=== PATIENT | female | born 1980 | race Caucasian/White ===

== ENCOUNTER 2017-07-19 20:54 | Inpatient (IN) | payer SELFPAY ==
[2017-07-19] MEDS: NORMAL SALINE 1000 ML 1,000 ML IV PRN (21:45)
[2017-07-19 21:56] LABS: HEMATOCRIT 36.6 % (36.0-47.0); HEMOGLOBIN 12.4 g/dL (12.0-15.5); HGB HCT DIFFERENCE 0.6; MEAN CORPUSCULAR HEMOGLOBIN 30.6 pg (27.0-33.4); MEAN CORPUSCULAR VOLUME 90 fl (80-97); RED BLOOD COUNT 4.06 10^6/uL (3.72-5.28); RED CELL DISTRIBUTION WIDTH 12.6 % (11.5-14.0); WHITE BLOOD COUNT 23.4 10^3/uL (4.0-10.5)
[2017-07-19 22:16] LABS: ALANINE AMINOTRANSFERASE 39 U/L (9-52); ALBUMIN 4.2 g/dL (3.5-5.0); ALKALINE PHOSPHATASE 84 U/L (38-126); ANION GAP 15 (5-19); ASPARTATE AMINO TRANSFERASE 17 U/L (14-36); BASOPHILS % (MANUAL) 0 % (0-2); BILIRUBIN,DIRECT 0.4 mg/dL (0.0-0.4); BILIRUBIN,TOTAL 0.5 mg/dL (0.2-1.3); BLOOD UREA NITROGEN 10 mg/dL (7-20); CALCIUM 9.2 mg/dL (8.4-10.2); CARBON DIOXIDE 22 mmol/L (22-30); CHLORIDE 106 mmol/L (98-107); EOSINOPHILS % (MANUAL) 0 % (0-6); GLUCOSE 175 mg/dL (75-110); LIPASE 54.8 U/L (23-300); LYMPHOCYTES % (MANUAL) 9 % (13-45); POTASSIUM 3.7 mmol/L (3.6-5.0); SODIUM 142.7 mmol/L (137-145); TOTAL CELLS COUNTED 100; TOTAL PROTEIN 7.2 g/dL (6.3-8.2)
[2017-07-19 22:18] LABS: TOXIC VACUOLATION PRESENT
[2017-07-19 22:19] LABS: POLYCHROMASIA SLIGHT
[2017-07-19 22:25] LABS: APPEARANCE,URINE CLEAR; BILIRUBIN,URINE NEGATIVE (NEGATIVE); GLUCOSE, URINE 150 mg/dL (NEGATIVE); KETONES,URINE NEGATIVE (NEGATIVE); LEUKOCYTE ESTERASE,URINE NEGATIVE (NEGATIVE); NITRITE,URINE NEGATIVE (NEGATIVE); PROTEIN,URINE NEGATIVE (NEGATIVE); URINE SPECIFIC GRAVITY 1.006; UROBILINOGEN,URINE NEGATIVE mg/dL (<2.0)
[2017-07-19] MEDS ORDERED: PROCHLORPERAZINE EDISYLATE INJ 10 MG/2 ML VIAL ONE (22:45)
[2017-07-19] MEDS ORDERED: PROCHLORPERAZINE EDISYLATE INJ 10 MG/2 ML VIAL IV ONE (22:50)
[2017-07-19] MEDS ORDERED: ERTAPENEM SODIUM INJ 1 GM VIAL IV ONE (23:17)
--- NOTE | 2017-07-19 23:23 | ER Document Report ---
ED General - General Chief Complaint: Flank Pain Stated Complaint: FLANK PAIN Time Seen by Provider: 07/19/17 21:23 TRAVEL OUTSIDE OF THE [place] IN LAST 30 DAYS: No - HPI Patient complains to provider of: Right lower quadrant abdominal pain Notes: Patient coming right lower quadrant pain. Umbilical pain ongoing for the last few days. Patient states nausea vomiting. Patient denies any fevers or chills. Patient states last meal was around 6:00. Denies any past medical issues. Patient resting currently upon my evaluation. - Related Data Allergies/Adverse Reactions: azithromycin [From Zithromax] Allergy (Intermediate, Verified 11/08/16 08:24) itching Home Medications: Current Home Medications Multivitamin [Tab-A-Chari] 1 each PO DAILY 07/19/17 [History] Past Medical History - Social History Smoking Status: Never Smoker Family History: Hypertension Patient has suicidal ideation: No Patient has homicidal ideation: No - Past Medical History Cardiac Medical History: Reports: Hx Hypertension Neurological Medical History: Denies: Hx Seizures Renal/ Medical History: Denies: Hx Peritoneal Dialysis GI Medical History: Reports: Hx Gastroesophageal Reflux Disease Psychiatric Medical History: Reports: Hx Depression Past Surgical History: Reports: Hx Cholecystectomy. Denies: Hx Hysterectomy - Immunizations Immunizations up to date: Yes Hx Diphtheria, Pertussis, Tetanus Vaccination: Yes Review of Systems - Review of Systems Constitutional: No symptoms reported EENT: No symptoms reported Cardiovascular: No symptoms reported Respiratory: No symptoms reported Gastrointestinal: Abdominal pain Genitourinary: No symptoms reported Female Genitourinary: No symptoms reported Musculoskeletal: No symptoms reported Skin: No symptoms reported Hematologic/Lymphatic: No symptoms reported Neurological/Psychological: No symptoms reported -: Yes All other systems reviewed and negative Physical Exam - Vital signs Vitals: Temp Pulse Resp BP Pulse Ox 98.7 F 125 H 20 133/85 H 98 07/19/17 21:02 07/19/17 21:02 07/19/17 21:02 07/19/17 21:02 07/19/17 21:02 Interpretation: Normal - General General appearance: Appears well, Alert - HEENT Head: Normocephalic, Atraumatic Eyes: Normal Pupils: PERRL - Respiratory Respiratory status: No respiratory distress Chest status: Nontender Breath sounds: Normal Chest palpation: Normal - Cardiovascular Rhythm: Regular Heart sounds: Normal auscultation Murmur: No - Abdominal Inspection: Normal Distension: No distension Bowel sounds: Normal Tenderness: McBurney's point, Guarding, Rebound. No: Ambrosio's sign Organomegaly: No organomegaly - Back Back: Normal, Nontender - Extremities General upper extremity: Normal inspection, Nontender, Normal color, Normal ROM , Normal temperature General lower extremity: Normal inspection, Nontender, Normal color, Normal ROM , Normal temperature, Normal weight bearing. No: Junior's sign - Neurological Neuro grossly intact: Yes Cognition: Normal Orientation: AAOx4 [place] Coma Scale Eye Opening: Spontaneous [place] Coma Scale Verbal: Oriented [place] Coma Scale Motor: Obeys Commands [place] Coma Scale Total: 15 Speech: Normal Motor strength normal: LUE, RUE, LLE, RLE Sensory: Normal - Psychological Associated symptoms: Normal affect, Normal mood - Skin Skin Temperature: Warm Skin Moisture: Dry Skin Color: Normal Course - Re-evaluation Re-evalutation: 07/19/17 23:22 Lab work shows leukocytosis CAT scan confirms acute appendicitis. Will notify surgeon life science taxonomist. A dose of Invanz will be given patient has been remain n.p.o. IV fluids have been given. Patient does remain tachycardic at this time. 07/19/17 23:33 Discussed with surgeon on-call recommends IV antibiotics will take the OR in the morning. - Vital Signs Vital signs: Temp Pulse Resp BP Pulse Ox 98.7 F 125 H 26 H 125/84 97 07/19/17 21:02 07/19/17 21:02 07/19/17 22:01 07/19/17 23:15 07/19/17 23:15 - Laboratory Result Diagrams: 07/19/17 21:46 07/19/17 21:46 Laboratory results interpreted by me: 07/19/17 07/19/17 07/19/17 21:46 21:46 22:10 WBC 23.4 H Seg Neuts % (Manual) 85 H Lymphocytes % (Manual) 9 L Abs Neuts (Manual) 19.9 H Glucose 175 H Urine Glucose (UA) 150 H Urine Blood SMALL H Discharge - Discharge Clinical Impression: Acute appendicitis Qualifiers: Acute appendicitis type: with localized peritonitis Qualified Code(s): K35.3 - Acute appendicitis with localized peritonitis Condition: Good Disposition: ADMITTED OBSERVATION Admitting Provider: Surgicalist - Appresai Unit Admitted: Surgical Floor Referrals: NILAY LOGAN, DESCRIPTIVE CATALOG LIBRARIAN [Primary Care Provider] - Follow up as needed
--- NOTE | 2017-07-19 23:24 | RADIOLOGY REPORT (SQ) ---
EXAM DESCRIPTION: CT ABD/PELVIS WITH IV ONLY COMPLETED DATE/TIME: 07/19/2017 11:04 pm REASON FOR STUDY: RLQ PAIN COMPARISON: None. TECHNIQUE: CT scan of the abdomen and pelvis performed using helical scanning technique with dynamic intravenous contrast injection. No oral contrast. Images reviewed with lung, soft tissue, and bone windows. Reconstructed coronal and sagittal MPR images reviewed. Delayed images for evaluation of the urinary system also acquired. All images stored on PACS. All CT scanners at this facility use dose modulation, iterative reconstruction, and/or weight based d osing when appropriate to reduce radiation dose to as low as reasonably achievable (ALARA). [facility]: Dose Right [facility]: CareDose [facility]: Dose Right [facility]: Teradose 4D [facility]: Cluster HQ CONTRAST TYPE AND DOSE: contrast/concentration: Isovue 370.00 mg/ml; Total Contrast Delivered: 100.0 ml; Total Saline Delivered: 45.0 ml RENAL FUNCTION: None required. The patient is less than 50 years old. RADIATION DOSE: CT Rad equipment meets quality standard of care and radiation dose reduction techniq ues were employed. CTDIvol: 17.6 mGy. DLP: 1978 mGy-cm.. LIMITATIONS: None. FINDINGS: LOWER CHEST: No significant findings. No nodules or infiltrates. Small atelectasis or sca r bilateral lower lobes. LIVER: Normal size. No masses. No dilated ducts. Moderate hepatic steatosis. SPLEEN: Normal size. No focal lesions. PANCREAS: No masses. No significant calcifications. No adjacent inflammation or peripancreatic fluid collections. Pancreatic duct not dilated. GALLBLADDER: No identified stones by CT criteria. No inflammatory changes to suggest cholecystitis. ADRENAL GLANDS: No significant masses or asymmetry. RIGHT KIDNEY AND URETER: No solid masses. No significant calcifications. No hydronephrosis or hyd roureter. LEFT KIDNEY AND URETER: No solid masses. No significant calcifications. No hydronephrosis or hydr oureter. AORTA AND VESSELS: No aneurysm. No dissection. Renal arteries, SMA, celiac without stenosis. RETROPERITONEUM: No retroperitoneal adenopathy, hemorrhage or masses. BOWEL AND PERITONEAL CAVITY: No masses or inflammatory changes. No free fluid or peritoneal masses. APPENDIX: 1.0 cm in diameter fluid-filled appendix with mural thickening with and small moderate surr ounding fluid and fat streaking. PELVIS: No mass. No free fluid. Normal bladder. ABDOMINAL WALL: No masses. No hernias. BONES: Mild lumbar levo convexity. Moderate L4-L5 disc bulge-osteophyte complex. Small L5-S1 disc b ulge. Mild spondylosis at the L4-5 level. OTHER: Right upper abdominal clips. IMPRESSION: Acute appendicitis. This report was called to JOVANNI MONAE DO at23:17 on 07/19/2017. TECHNICAL DOCUMENTATION: JOB ID: [id number] Quality ID # [id number]: Final reports with documentation of one or more dose reduction techniques (e.g., Au tomated exposure control, adjustment of the mA and/or kV according to patient size, use of iterative reconstruction technique) 2010 [employer]- All Rights Reserved
[2017-07-19] MEDS ORDERED: NORMAL SALINE 1000 ML 1,000 ML IV ONE (23:42)
[2017-07-20] MEDS: NORMAL SALINE 1000 ML 1,000 ML IV PRN (01:35)
[2017-07-20] MEDS: ONDANSETRON HCL INJ/PF 4 MG/2 ML SDV IV SCH ×5 (03:07→21:32)
[2017-07-20] MEDS: MORPHINE SULFATE 10 MG/ML INJ IV SCH ×6 (03:07→23:31)
[2017-07-20] MEDS ORDERED: NORMAL SALINE 1000 ML 1,000 ML IV PRN (04:13)
[2017-07-20] MEDS ORDERED: KETOROLAC TROMETHAMINE INJ/PF 30 MG/1 ML SDV IV PRN (04:58)
--- NOTE | 2017-07-20 07:46 | PDOC H&P ---
History of Present Illness Admission Date/PCP: 07/20/17 00:36 NILAY LOGAN NP Patient complains of: Right Lower Quadrant abdominal pain x 36 hrs History of Present Illness: BAO STRE[address] is a 37 year old female admitted early this morning with RLQ pain for just less than a day and a half. She has associated nausea and an episode of vomiting. No fever or chills. Past Medical History Past Medical History: Vertigo Past Surgical History Past Surgical History: Reports: Section, Cholecystectomy Denies: Hysterectomy Social History Smoking Status: Never Smoker Drugs: None Hx Prescription Drug Abuse: No Family History Family History: Hypertension Parental Family History Reviewed: No Children Family History Reviewed: No Sibling(s) Family History Reviewed.: No Medication/Allergy Home Medications: Multivitamin [Tab-A-Chari] 1 each PO DAILY 07/19/17 Allergies/Adverse Reactions: azithromycin [From Zithromax] Allergy (Intermediate, Verified 11/08/16 08:24) itching Review of Systems Constitutional: ABSENT: chills, fever(s), headache(s), weight gain, weight loss Eyes: ABSENT: visual disturbances Ears: ABSENT: hearing changes Cardiovascular: ABSENT: chest pain, dyspnea on exertion, edema, orthropnea, palpitations Respiratory: ABSENT: cough, hemoptysis Gastrointestinal: PRESENT: abdominal pain, nausea, vomiting Genitourinary: ABSENT: dysuria, hematuria Musculoskeletal: ABSENT: joint swelling Integumentary: ABSENT: rash, wounds Neurological: ABSENT: abnormal gait, abnormal speech, confusion, dizziness, focal weakness, syncope Psychiatric: ABSENT: anxiety, depression, homidical ideation, suicidal ideation Endocrine: ABSENT: cold intolerance, heat intolerance, polydipsia, polyuria Hematologic/Lymphatic: ABSENT: easy bleeding, easy bruising Physical Exam Vital Signs: Temp Pulse Resp BP Pulse Ox 98.6 F 123 H 17 126/74 H 97 07/20/17 02:45 07/20/17 02:45 07/20/17 02:45 07/20/17 02:45 07/20/17 02:45 Intake & Output 07/19/17 07/20/17 07/21/17 06:59 06:59 06:59 Intake Total 0 Output Total 200 Balance -200 Weight 108 kg General appearance: PRESENT: no acute distress, well-developed, well-nourished Head exam: PRESENT: atraumatic, normocephalic Eye exam: PRESENT: conjunctiva pink, EOMI, PERRLA. ABSENT: scleral icterus Ear exam: PRESENT: normal external ear exam Mouth exam: PRESENT: moist, tongue midline Neck exam: ABSENT: carotid bruit, JVD, lymphadenopathy, thyromegaly Respiratory exam: PRESENT: clear to auscultation katie. ABSENT: rales, rhonchi, wheezes Cardiovascular exam: PRESENT: RRR. ABSENT: diastolic murmur, rubs, systolic murmur Pulses: PRESENT: normal dorsalis pedis pul Vascular exam: PRESENT: normal capillary refill GI/Abdominal exam: PRESENT: normal bowel sounds, soft, other - Port site incisional scars in the umbilicus and upper abdomen. Pfannenstiel scar. Tenderness in RLQ Rectal exam: PRESENT: deferred Extremities exam: PRESENT: full ROM. ABSENT: calf tenderness, clubbing, pedal edema Neurological exam: PRESENT: alert, awake, oriented to person, oriented to place , oriented to time, oriented to situation, CN II-XII grossly intact. ABSENT: motor sensory deficit Psychiatric exam: PRESENT: appropriate affect, normal mood. ABSENT: homicidal ideation, suicidal ideation Skin exam: PRESENT: dry, intact, warm. ABSENT: cyanosis, rash Results Impressions: Abdomen/Pelvis CT 07/19/17 21:20 IMPRESSION: Acute appendicitis. This report was called to JOVANNI MONAE DO at23:17 on 07/19/2017. Assessment & Plan - Diagnosis (1) Acute appendicitis Qualifiers: Acute appendicitis type: with localized peritonitis Qualified Code(s): K35.3 - Acute appendicitis with localized peritonitis Is this a current diagnosis for this admission?: Yes Plan: The patient is admitted NPO IV antibiotics Pain control DVT prophylaxis She is scheduled for a laparoscopic appendectomy today.
[2017-07-20] MEDS ORDERED: FENTANYL CITRATE INJ/PF 100 MCG/2 ML AMPUL ONE (09:13)
[2017-07-20] MEDS ORDERED: PROPOFOL INJ 200 MG/20 ML VIAL IV ONE (09:13)
[2017-07-20] MEDS ORDERED: EPHEDRINE SULFATE INJ 50 MG/1 ML AMPULE ONE (09:13)
[2017-07-20] MEDS ORDERED: HYDROMORPHONE HCL INJ/PF 2 MG/ML AMPULE ONE ×2 (09:13)
[2017-07-20] MEDS ORDERED: MIDAZOLAM 2 MG/2 ML INJ ONE (09:13)
[2017-07-20] MEDS ORDERED: IBUPROFEN INJ 800 MG/8 ML VIAL IV ONE (09:14)
[2017-07-20] MEDS ORDERED: GLYCOPYRROLATE INJ 0.4 MG/2 ML VIAL ONE (09:31)
[2017-07-20] MEDS ORDERED: NEOSTIGMINE METHYLSULFATE 10 MG/10 ML VIAL ONE (09:31)
[2017-07-20] MEDS ORDERED: ONDANSETRON HCL INJ/PF 4 MG/2 ML SDV ONE ×2 (09:31→11:53)
[2017-07-20] MEDS ORDERED: LIDOCAINE 2% INJ-PF (20 MG/ML) 2 ML AMPUL ONE (09:31)
[2017-07-20] MEDS ORDERED: ROCURONIUM BROMIDE INJ 50 MG/5 ML VIAL IV ONE (09:31)
[2017-07-20] MEDS ORDERED: SUCCINYLCHOLINE CHLORIDE INJ 200 MG/10 ML VIAL ONE (09:31)
[2017-07-20] MEDS ORDERED: DEXAMETHASONE SOD PHOSPHATE INJ 4 MG/1 ML VIAL ONE (09:31)
[2017-07-20] MEDS ORDERED: CEFAZOLIN INJ 1 GM VIAL ONE ×2 (09:41→09:42)
[2017-07-20] MEDS ORDERED: PROMETHAZINE HCL INJ 25 MG/1 ML VIAL IV PRN (09:58)
[2017-07-20] MEDS ORDERED: FENTANYL CITRATE INJ/PF 100 MCG/2 ML AMPUL IV PRN ×3 (09:58)
[2017-07-20] MEDS ORDERED: DIPHENHYDRAMINE HCL 50 MG/ML VIAL IV PRN (09:58)
[2017-07-20] MEDS ORDERED: MEPERIDINE HCL/PF INJ 25 MG/1 ML DISP.SYRIN IV PRN (09:58)
[2017-07-20] MEDS ORDERED: BUPIVACAINE HCL 0.5%-EPI 1:200000 INJ/PF 30 ML VIAL ONE (09:59)
[2017-07-20] MEDS ORDERED: HYDROCODONE/ACETAMINOPHEN 5-325 MG TABLET PO PRN (11:00)
[2017-07-20] MEDS ORDERED: ERTAPENEM SODIUM 1 GM in NORMAL SALINE 50 ML IV SCH ×2 (11:00→18:00)
[2017-07-20] MEDS: ENOXAPARIN SODIUM INJ 40 MG/0.4 ML DISP.SYRIN SUBCUT SCH (11:08)
[2017-07-20] MEDS ORDERED: NALOXONE HCL INJ/PF 0.4 MG/1 ML SDV ONE (11:42)
[2017-07-20] MEDS ORDERED: ACETAMINOPHEN 100 ML IV ONE (11:49)
[2017-07-20] MEDS ORDERED: METOCLOPRAMIDE HCL INJ/PF 10 MG/2 ML SDV ONE (11:53)
[2017-07-20] MEDS: ONDANSETRON HCL INJ/PF 4 MG/2 ML SDV IV PRN (15:20)
[2017-07-20] MEDS: HYDROMORPHONE HCL INJ/PF 2 MG/ML AMPULE IV PRN ×3 (15:21→23:04)
[2017-07-21] MEDS: MORPHINE SULFATE 10 MG/ML INJ IV SCH ×4 (01:19→14:05)
[2017-07-21 05:25] LABS: ANION GAP 11 (5-19); BLOOD UREA NITROGEN 8 mg/dL (7-20); CALCIUM 8.3 mg/dL (8.4-10.2); CARBON DIOXIDE 24 mmol/L (22-30); CHLORIDE 108 mmol/L (98-107); CREATININE RESULT 0.56 mg/dL (0.52-1.25); GLUCOSE 114 mg/dL (75-110); HEMATOCRIT 30.6 % (36.0-47.0); HGB HCT DIFFERENCE 0.6; MEAN CORPUSCULAR HEMOGLOBIN 30.2 pg (27.0-33.4); MEAN CORPUSCULAR HGB CONC 33.9 g/dL (32.0-36.0); MEAN CORPUSCULAR VOLUME 89 fl (80-97); RED BLOOD COUNT 3.44 10^6/uL (3.72-5.28); RED CELL DISTRIBUTION WIDTH 13.1 % (11.5-14.0); SODIUM 142.5 mmol/L (137-145); WHITE BLOOD COUNT 16.5 10^3/uL (4.0-10.5)
[2017-07-21] MEDS: ONDANSETRON HCL INJ/PF 4 MG/2 ML SDV IV SCH ×2 (05:25→12:07)
[2017-07-21 05:27] LABS: HEMOGLOBIN 10.4 g/dL (12.0-15.5)
[2017-07-21] MEDS: HYDROMORPHONE HCL INJ/PF 2 MG/ML AMPULE IV PRN ×2 (05:30→15:06)
[2017-07-21] MEDS: ENOXAPARIN SODIUM INJ 40 MG/0.4 ML DISP.SYRIN SUBCUT SCH (09:40)
--- NOTE | 2017-07-21 12:04 | OPERATIVE REPORT E ---
Operative Report NAME: BAO STRE[address] : 1980 AGE: 37Y DATE OF SURGERY: 07/20/2017 ROOM: 426 PREOPERATIVE DIAGNOSIS: Acute appendicitis. POSTOPERATIVE DIAGNOSIS: Acute appendicitis with retrocecal abscess, possibly [id number] appendicitis, possible retrocecal abscess. OPERATIONS: 1. Laparoscopic drainage of retrocecal abscess. 2. Laparoscopic appendectomy. SURGEON: JUSTIN MCFARLANE M.D. ANESTHESIA: General. BLOOD LOSS: Less than 20 mL. SPECIMENS: Appendix. HISTORY AND INDICATION: As described. DESCRIPTION OF OPERATION: Under general anesthesia, in the supine position with SCD boots, he was given antibiotic, Invanz, abdomen was cleaned and draped as a sterile field. Initial access in the infraumbilical area. Endometrial 12 mm trocar incision made and 12 mm trocar inserted. Then, two 5 mm trocars, 1 in the pericervical area and then 1 in the left lower quadrant reinserted. Findings: Basically appendix was retrocecal with a retrocecal abscess. It was mobilized. Retrocecal abscess was drained. We will continue to drain and irrigate it, and then the appendix was completely carefully mobilized. After that, once the mesoappendix was divided by using the Harmonic scalpel and clips, appendix was divided close to the cecum, anterior to . The retrocecal area, abdominal cavity, pericecal cavity completely irrigated and suctioned out until the effluent was clear. After that, complete hemostasis was secured. A 15 mm Shin drain inserted in the retrocecal area, brought out through 5 mm trocar in the left lower quadrant area. All the trocars were removed. The patient recovery in stable condition. DICTATING PHYSICIAN: JUSTIN MCFARLANE M.D. [id number] PHY#: [id number] ID: [id number] JOB#: [id number] ACCT: [id number] cc:JUSTIN MCFARLANE M.D. > MTDD
[2017-07-21] MEDS: ONDANSETRON HCL INJ/PF 4 MG/2 ML SDV IV PRN (14:04)
--- NOTE | 2017-07-21 16:33 | DISCHARGE SUMMARY E ---
Discharge Summary NAME: BAO [address] : 1980 AGE: 37Y ADMITTED: 07/20/2017 DISCHARGED: 07/21/2017 ADMITTING DIAGNOSIS: Acute appendicitis. DISCHARGE DIAGNOSIS: Acute appendicitis. OPERATION PERFORMED: Laparoscopic appendectomy. SURGEON: Alona Sommer M.D. HOSPITAL COURSE: She was admitted by another surgeon the day before. She was given IV antibiotic. I took over her, started on IV antibiotic, and then she underwent surgery yesterday. She is doing very well now this morning. She is ambulating, eating, tolerating a regular diet. Abdominal exam is soft, nontender. She is doing very well. She will go home with pain medication, [place] for the pain. FOLLOWUP PLAN: In 2 weeks in the office in surgical clinic. At the time of discharge, the patient is doing very well. DICTATING PHYSICIAN: ALONA SOMMER M.D. [id number] PHY#: [id number] ID: [id number] JOB#: [id number] ACCT: [id number] cc:ALONA SOMMER M.D. [facility],
[2017-07-21 17:30] VITALS: BP 134/70
== END 2017-07-21 17:55 | disposition home or self-care (01) | DRG 340 ==
LOC: ER 20:54 → EH 07-20 00:36 → 4S 07-20 02:35 → OBSVTOIN 07-20 04:16
PROVIDERS: ATTEND Colon & Rectal Surgery
PROC: 0D9H4ZZ Drainage of Cecum, Percutaneous Endoscopic Approach (ICD-10-PCS; 2017-07-20)
PROC: 0DTJ4ZZ Resection of Appendix, Percutaneous Endoscopic Approach (ICD-10-PCS; principal; 2017-07-20 10:00)
DX: K35.3 Acute appendicitis with localized peritonitis (principal); Z90.49 Acquired absence of other specified parts of digestive tract; Z88.1 Allergy status to other antibiotic agents
CPT/HCPCS: 36415; 74177; 80048; 80053; 81001; 81025; 83690; 840; 85025; 85027; 88304; 88313; 88341; 88342; 94799; 96361; 96365; 96375; 99285; J0131; J0330; J0690; J0780; J1100; J1170; J1335; J1741; J1885; J2250; J2310; J2405; J2704; J2765; J3010; J3490; J7030

== ENCOUNTER → 2019-08-08 | Outpatient (CLI) | payer BC ==
--- NOTE | 2019-08-08 19:02 | XCELERA REPORT ---
[address] [id number] Transthoracic Echocardiogram Report Name: BAO [address] Age: 39 yrs Gender: Female : 1980 Patient Status: Outpatient Patient Location: [facility] Study Date: 08/08/2019 09:57 AM Height: 70 in Weight: 237 lb BSA: 2.2 m2 Procedure: A complete two-dimensional transthoracic echocardiogram was performed (2D, M-mode, spectral and color flow Doppler). The study was technically difficult with many images being suboptimal in quality. Reason For Study: DIZZINESS/ SOB Ordering Physician: NILAY LOGAN Performed By: Snehal Prater Interpretation Summary Left ventricular systolic function is low normal. There is borderline concentric left ventricular hypertrophy. The left ventricle is grossly normal size. Doppler measurements suggest impaired left ventricular relaxation, which is associated with grade I/IV or mild diastolic dysfunction Wall motion cannot be accurately commented on, but no definite regional wall motion abnormalities noted. The right ventricular systolic function is normal. The right ventricle is grossly normal size. The left atrial size is normal. The right atrium is normal in size There is a trace amount of mitral regurgitation There is no mitral valve stenosis. No aortic regurgitation is present. There is no aortic valve stenosis No tricuspid regurgitation. There is no tricuspid stenosis. The aortic root is not well visualized but is probably normal size. The inferior vena cava was not well visualized There is no pericardial effusion. MMode/2D Measurements & Calculations IVSd: 0.83 cm LVIDd: 5.1 cm FS: 30.1 % Ao root diam: LVIDs: 3.6 cm EDV(Teich): 2.9 cm 124.0 ml Ao root area: LVPWd: 0.89 cm ESV(Teich): 6.5 cm2 53.2 ml LA dimension: EF(Teich): 57.1 % 3.4 cm LVLd ap4: 8.9 cm SV(MOD-sp4): EDV(MOD-sp4): 77.0 ml 121.0 ml LVLs ap4: 7.2 cm ESV(MOD-sp4): 44.0 ml EF(MOD-sp4): 63.6 % Doppler Measurements & Calculations MV E max mamadou: MV dec time: Ao V2 max: LV V1 max P.9 cm/sec 0.19 sec 139.6 cm/sec 5.1 mmHg MV A max mamadou: Ao max P.8 mmHg LV V1 max: 95.8 cm/sec 112.5 cm/sec MV E/A: 0.91 PA V2 max: 84.9 cm/sec PA max P.9 mmHg Left Ventricle The left ventricle is grossly normal size. There is borderline concentric left ventricular hypertrophy. Left ventricular systolic function is low normal. Doppler measurements suggest impaired left ventricular relaxation, which is associated with grade I/IV or mild diastolic dysfunction. Wall motion cannot be accurately commented on, but no definite regional wall motion abnormalities noted. Right Ventricle The right ventricle is grossly normal size. There is normal right ventricular wall thickness. The right ventricular systolic function is normal. Atria The right atrium is normal in size. The left atrial size is normal. Interarterial septum not well visualized and not well dopplered. Cannot comment on ASD/PFO presence. Mitral Valve The mitral valve is grossly normal. There is no mitral valve stenosis. There is a trace amount of mitral regurgitation. Aortic Valve The aortic valve is not well visualized secondary to technical limitations. There is no aortic valve stenosis. No aortic regurgitation is present. Tricuspid Valve The tricuspid valve is not well visualized, but is grossly normal. There is no tricuspid stenosis. No tricuspid regurgitation. Pulmonic Valve The pulmonic valve is not well visualized. Great Vessels The aortic root is not well visualized but is probably normal size. The inferior vena cava was not well visualized. Effusions There is no pericardial effusion. : NILAY LOGAN Shyamal
== END ==
LOC: SP 09:31
PROVIDERS: ATTEND Nurse Practitioner Primary Care
DX: R42 Dizziness and giddiness (principal); R06.02 Shortness of breath
CPT/HCPCS: 93306